=== PATIENT | male | born 1945 | race Caucasian/White ===

== ENCOUNTER → 2017-12-12 | Day surgery (SDC) | payer MEDICARE ==
[~2017-12-12] VITALS: Ht 181.6 cm; Wt 69.8 kg
[~2017-12-12] MED LIST: ACETAMINOPHEN 1000 MG/100 ML 100 ML IV SCH; ACID100C; ASCO500C PO; ASPI1TAB57 PO; ASTA4CAP; BUPIVACAINE/EPINEPHRINE 0.5% PF 10 ML VIAL ONE; CENTCHW4 CHEW; CHLORHEXIDINE GLUCONATE 2 % 1 PACK (2 CLOTHS) TOPICAL PRN; COQ-100C5 PO; DEXAMETHASONE SOD PHOS 4 MG/ML VIAL IV ONE; DO NOT ADM ANY ANTICOAGULANT DRUGS PRN; GLYCOPYRROLATE 1 MG/5 ML SYRINGE IV PUSH ONE; LACTATED RINGER'S 1000 ML INJ 1,000 ML IV ONE; LACTATED RINGER'S 1000 ML IV PRN; LIDOCAINE HCL 1% PF 5 ML SYRINGE OTHER ONE; MAGN400T24 PO; METOPROLOL TARTRATE 25 MG TAB PO PRN; MIDAZOLAM HCL 2 MG/2 ML VIAL ONE; MORPHINE SULFATE 4 MG/ML INJ IV PUSH PRN; MORPHINE SULFATE 4 MG/ML INJ ONE; NEOSTIGMINE 5 MG/5 ML SYRINGE IV PUSH ONE; OMEG100046 PO; ONDANSETRON HCL 4 MG/2 ML VIAL IV ONE; ONDANSETRON ODT 4 MG TAB PO PRN; PHENYLEPH/NS 1000 MCG/10 ML SYR IV ONE; POVIDONE IODINE 5% (ANTISEPSIS KIT) 4 APPLICATIONS EACH NARE PRN; PROPOFOL 200 MG/20 ML AMP IV ONE; ROCURONIUM INJ 50 MG/5 ML SYRINGE IV PUSH ONE; SODIUM CHLORID 0.9% 500 ML IV PRN; TIMO0.5S30 EACH EYE; TURM500C7 PO; VARI50VI; VITA1000 PO; ceFAZolin 2 GM PREMIX 50 ML IV SCH; ePHEDrine/NS 25 MG/5 ML SYRINGE IV ONE; oxyCODONE/ACETAMINOPHEN 5 MG/325 MG TAB PO PRN
--- NOTE | 2017-12-12 14:46 | PD.OP ---
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 Procedure in detail: The patient was taken to the operating room and placed in the supine position. General endotracheal anesthesia was induced. The abdomen was prepped and draped in usual sterile fashion and a surgical timeout performed to verify correct patient procedure and site. A 1 cm incision was made inferior to the umbilicus after infiltration of local anesthetic. Dissection carried down to the underlying fascia and the anterior fascia to the right of midline was incised vertically. The extraperitoneal space was developed by insufflating the balloon. This trocar was then removed and the structural balloon was placed. The extraperitoneal space was insufflated to 11 mmHg with CO2 gas which the patient tolerated well. Next two 5 mm ports were placed in the lower midline. Attention was turned to the left inguinal area. The lateral space was developed. Medially Alexander's ligament was identified. No direct hernia present. Attention was turned to the spermatic cord. The spermatic cord structures were identified. There is a fairly large chronic indirect inguinal hernia sac. The sac was reduced using blunt dissection. There were 2 large tears in the hernia sac which were closed with hemoclips. There was oozing from a branch of the epigastric vessel and this was treated also with a Hemoclip and hemostasis was achieved. A large spermatic cord lipoma was reduced. At this point, a 15 x 15 cm piece of ultra Pro advanced lightweight polypropylene mesh was cut to approximately 11 x 14 cm. It was secured with the Secure strap tacker superior laterally, superior and lateral to the epigastric vessels, medially at Alexander's ligament, and medial and superior in the rectus musculature. There was complete coverage of the entire inguinal floor including the indirect and direct spaces. The extraperitoneal spaces and allowed to desufflate and trochars were removed. There was some peritoneal insufflation and therefore a small incision was made in the posterior rectus sheath to allow for desufflation of the peritoneal cavity. The posterior rectus sheath was closed with [id number] 2-0 Vicryl suture. The anterior fascia was closed with running 2-0 Vicryl suture and skin with 4-0 Monocryl subcuticular as well as Dermabond. The patient tolerated the procedure well and was extubated and taken to PACU in stable condition. Alexei Ortiz MD Dec 12, 2017 14:46
[2017-12-12 16:45] VITALS: BP 140/74; PULSE 68; RESP 16; TEMP 97.5; O2SAT 99
== END | disposition home or self-care (01) ==
LOC: HSDC 11:03
PROVIDERS: ATTEND Surgery
DX: K40.90 Unilateral inguinal hernia, without obstruction or gangrene, not specified as recurrent (principal)
CPT/HCPCS: 00840; 49650; C1727; C1781; J0131; J0690; J1100; J2250; J2270; J2370; J2405; J2710; J3010; J7120